=== PATIENT | female | born 1950 | race Caucasian/White ===

== ENCOUNTER → 2023-08-26 11:32 | Outpatient (REF) | payer MEDICARE, OTHER, SELFPAY | LOC: HWRAD 11:32 | PROVIDERS: ATTENDING PHYSICIAN Internal Medicine | DX: J18.9 Pneumonia, unspecified organism (principal) | CPT/HCPCS: 71046 ==

== ENCOUNTER → 2023-09-26 15:18 | Outpatient (REF) | payer MEDICARE, OTHER, SELFPAY | LOC: RCS 15:18 | PROVIDERS: ATTENDING PHYSICIAN Internal Medicine | DX: R01.1 Cardiac murmur, unspecified (principal) | CPT/HCPCS: 93306 ==

== ENCOUNTER → 2023-10-11 08:15 | Outpatient (REF) | payer MEDICARE, OTHER, SELFPAY ==
[2023-10-11 12:15] LABS: Microalbumin, Random Urine 18.6 mg/dl (0.6-1.7)
[2023-10-11 12:30] LABS: ALT (SGPT) 29 U/L (0-35); AST (SGOT) 28 U/L (14-36); Albumin 4.2 g/dl (3.5-5.0); Alkaline Phosphatase 99 U/L (38-126); Blood Urea Nitrogen 14 mg/dl (7-17); Calcium 9.7 mg/dl (8.4-10.2); Carbon Dioxide 28 mmol/L (22-30); Chloride 103 mmol/L (98-107); Glucose 103 mg/dl (70-99); HDL Cholesterol 51 mg/dl; LDL Cholesterol, Calculated 74 mg/dl; Potassium 4.4 mmol/L (3.5-5.1); Sodium 138 mmol/L (135-145); Total Bilirubin 0.6 mg/dl (0.2-1.3); Total Cholesterol 149 mg/dl (50-199); Triglyceride 122 mg/dl (10-149); Very Low Density Lipoprotein 24 mg/dl (0-30); eGFR > 60.00
[2023-10-11 14:35] LABS: Glycohemoglobin (HgbA1c) 6.8 % (4.0-5.6)
== END ==
LOC: HWLAB 08:15
PROVIDERS: ATTENDING PHYSICIAN Internal Medicine
DX: E78.5 Hyperlipidemia, unspecified (principal); E11.9 Type 2 diabetes mellitus without complications
CPT/HCPCS: 36415; 80053; 80061; 82043; 82570; 83036

== ENCOUNTER → 2023-12-16 13:57 | Outpatient (REF) | payer MEDICARE, OTHER, SELFPAY | LOC: HWWDC 13:57 | PROVIDERS: ATTENDING PHYSICIAN Internal Medicine | DX: Z12.31 Encounter for screening mammogram for malignant neoplasm of breast (principal) | CPT/HCPCS: 77063; 77067 ==

== ENCOUNTER → 2024-04-06 08:11 | Outpatient (REF) | payer MEDICARE, OTHER, SELFPAY ==
[2024-04-06 10:04] LABS: ALT (SGPT) 29 U/L (0-35); AST (SGOT) 26 U/L (14-36); Albumin 4.4 g/dl (3.5-5.0); Alkaline Phosphatase 98 U/L (38-126); Blood Urea Nitrogen 12 mg/dl (7-17); Calcium 9.6 mg/dl (8.4-10.2); Carbon Dioxide 33 mmol/L (22-30); Chloride 100 mmol/L (98-107); Glucose 135 mg/dl (70-99); HDL Cholesterol 59 mg/dl; LDL Cholesterol, Calculated 85 mg/dl; Potassium 4.5 mmol/L (3.5-5.1); Sodium 144 mmol/L (135-145); Total Bilirubin 0.5 mg/dl (0.2-1.3); Total Cholesterol 172 mg/dl (50-199); Total Protein 7.4 g/dl (6.3-8.2); Triglyceride 140 mg/dl (10-149); Very Low Density Lipoprotein 28 mg/dl (0-30); eGFR > 60.00
[2024-04-06 10:49] LABS: Glycohemoglobin (HgbA1c) 6.9 % (4.0-5.6)
== END ==
LOC: HWLAB 08:11
PROVIDERS: ATTENDING PHYSICIAN Internal Medicine
DX: E78.5 Hyperlipidemia, unspecified (principal); E11.9 Type 2 diabetes mellitus without complications
CPT/HCPCS: 36415; 80053; 80061; 83036

== ENCOUNTER → 2024-06-23 10:33 | Outpatient (REF) | payer MEDICARE, OTHER, SELFPAY ==
[2024-06-23 12:17] LABS: Urine Albumin Trace (Neg - Trace); Urine Bilirubin Negative (Negative); Urine Character Very Cloudy (Clear); Urine Color Yellow; Urine Glucose Negative (Negative); Urine Ketone Negative (Negative); Urine Leukocyte 1+ (Negative); Urine Nitrite Negative (Negative); Urine Occult Blood 4+ (Negative); Urine Urobilinogen Negative (Neg - 1+)
[2024-06-23 12:33] LABS: Urine Squamous Cell 0-2 /LPF (Few)
[2024-06-23 12:34] LABS: Urine Bacteria Few (Negative); Urine Red Blood Cell 60-70 /HPF (0-2); Urine White Cell 40-50 /HPF (0-5)
== END ==
LOC: HWLAB 10:33
PROVIDERS: ATTENDING PHYSICIAN Specialist; FAMILY PHYSICIAN Internal Medicine
DX: N39.0 Urinary tract infection, site not specified (principal)
CPT/HCPCS: 81003; 81015; 87077; 87086; 87186

== ENCOUNTER → 2024-11-25 07:46 | Outpatient (REF) | payer MEDICARE, OTHER, SELFPAY ==
[2024-11-25 10:16] LABS: ALT (SGPT) 85 U/L (0-35); AST (SGOT) 77 U/L (14-36); Albumin 4.2 g/dl (3.5-5.0); Alkaline Phosphatase 113 U/L (38-126); Blood Urea Nitrogen 13 mg/dl (7-17); Carbon Dioxide 30 mmol/L (22-30); Chloride 106 mmol/L (98-107); Glucose 134 mg/dl (70-99); HDL Cholesterol 52 mg/dl; LDL Cholesterol, Calculated 88 mg/dl; Potassium 4.5 mmol/L (3.5-5.1); Sodium 141 mmol/L (135-145); Total Bilirubin 0.6 mg/dl (0.2-1.3); Total Cholesterol 165 mg/dl (50-199); Total Protein 6.9 g/dl (6.3-8.2); Triglyceride 128 mg/dl (10-149); Very Low Density Lipoprotein 25 mg/dl (0-30); eGFR > 60.00
[2024-11-25 10:30] LABS: Glycohemoglobin (HgbA1c) 7.8 % (4.0-5.6)
== END ==
LOC: HWLAB 07:46
PROVIDERS: ATTENDING PHYSICIAN Internal Medicine
DX: E11.9 Type 2 diabetes mellitus without complications (principal); E78.5 Hyperlipidemia, unspecified
CPT/HCPCS: 36415; 80053; 80061; 83036

== ENCOUNTER → 2024-12-16 13:31 | Outpatient (REF) | payer MEDICARE, OTHER, SELFPAY | LOC: HWWDC 13:31 | PROVIDERS: ATTENDING PHYSICIAN Internal Medicine | DX: Z12.31 Encounter for screening mammogram for malignant neoplasm of breast (principal) | CPT/HCPCS: 77063; 77067 ==

== ENCOUNTER → 2024-12-31 09:22 | Outpatient (REF) | payer MEDICARE, OTHER, SELFPAY ==
[2024-12-31 12:05] LABS: ALT (SGPT) 29 U/L (0-35); AST (SGOT) 24 U/L (14-36)
== END ==
LOC: HWLAB 09:22
PROVIDERS: ATTENDING PHYSICIAN Internal Medicine
DX: K76.0 Fatty (change of) liver, not elsewhere classified (principal)
CPT/HCPCS: 36415; 84450; 84460

== ENCOUNTER → 2025-04-08 10:04 | Outpatient (REF) | payer MEDICARE, OTHER, SELFPAY | LOC: HWRAD 10:04 | PROVIDERS: ATTENDING PHYSICIAN Internal Medicine | DX: Z78.0 Asymptomatic menopausal state (principal) | CPT/HCPCS: 77080 ==